=== PATIENT | male | born 1990 | race African-American/Black ===

== ENCOUNTER 2018-03-19 16:16 | Emergency (ER) | payer OTHER ==
[~2018-03-19] VITALS: Ht 172.7 cm; Wt 69.0 kg
[2018-03-19 18:16] LABS: HEMATOCRIT. 37.6 % (42.0-52.0); HEMOGLOBIN. 12.2 g/dL (14.0-18.0); MEAN CORPUSCULAR HEMOGLOBIN 28.1 pg (28.0-32.0); MEAN CORPUSCULAR VOLUME 86.4 fL (80.0-94.0); MEAN PLATELET VOLUME 10.5 fl (7.4-10.4); PLATELET 182 x1000/uL (130-400); RED BLOOD CELL COUNT 4.35 mill/uL (4.7-6.1); RED CELL DISTRIBUTION WIDTH 13.7 % (11.6-14.6)
[2018-03-19 18:18] LABS: CHLORIDE 105 mEq/L (98-107)
[2018-03-19 18:24] LABS: ETHANOL BLOOD < 10 mg/dL
[2018-03-19 18:50] LABS: PLATELET ESTIMATE NORMAL
[2018-03-20 04:32] LABS: CLARITY URINE CLEAR (CLEAR); COLOR URINE DARK YELLOW (YELLOW); KETONES URINE TRACE (NEGATIVE); LEUKOCYTE ESTERASE URINE NEGATIVE (NEGATIVE); NITRITE URINE NEGATIVE (NEGATIVE); OCCULT BLOOD URINE NEGATIVE (NEGATIVE); PH URINE 5.5 (4.5-8.0); PROTEIN URINE NEGATIVE (NEGATIVE); SPECIFIC GRAVITY URINE 1.026 (1.005-1.030)
[2018-03-20 04:41] LABS: *AMPHETAMINES SCREEN URINE NEGATIVE (NEGATIVE); *BARBITURATES SCREEN URINE NEGATIVE (NEGATIVE); *BENZODIAZEPINES SCREEN URINE NEGATIVE (NEGATIVE); *COCAINE SCREEN URINE NEGATIVE (NEGATIVE); METHADONE URINE SCREEN NEGATIVE (NEGATIVE)
[2018-03-20 04:42] LABS: CANNABINOID URINE SCREEN PRESUMTIVE POSITIVE (NEGATIVE); OPIATES URINE SCREEN NEGATIVE (NEGATIVE); PHENCYCLIDINE URINE SCREEN NEGATIVE (NEGATIVE)
[2018-03-20] MEDS: OLANZAPINE 10MG TABLET PO SCH (11:44)
[2018-03-21 10:40] VITALS: BP 108/56
[2018-03-21] MEDS: OLANZAPINE 10MG TABLET PO SCH (11:15)
== END 2018-03-21 12:20 | disposition home or self-care (01) ==
LOC: ER 16:16
DX: R41.82 Altered mental status, unspecified (principal)
CPT/HCPCS: 36415; 70450; 80053; 80307; 80329; 85025; 99285; G0482; Z7610

== ENCOUNTER 2018-03-21 14:14 | Emergency (ER) | payer OTHER ==
[~2018-03-21] VITALS: Ht 167.6 cm; Wt 57.0 kg
[2018-03-21 14:17] VITALS: BP 110/70
== END 2018-03-21 22:42 | disposition left against medical advice (07) ==
LOC: ER 14:31
DX: R44.0 Auditory hallucinations (principal); Z53.21 Procedure and treatment not carried out due to patient leaving prior to being seen by health care provider

== ENCOUNTER 2020-03-07 14:48 | Emergency (ER) | payer OTHER ==
[~2020-03-07] VITALS: Ht 170.2 cm; Wt 60.0 kg
[2020-03-07 17:43] LABS: CLARITY URINE CLEAR (CLEAR); COLOR URINE YELLOW (YELLOW); KETONES URINE TRACE (NEGATIVE); LEUKOCYTE ESTERASE URINE NEGATIVE (NEGATIVE); NITRITE URINE NEGATIVE (NEGATIVE); OCCULT BLOOD URINE NEGATIVE (NEGATIVE); PROTEIN URINE NEGATIVE (NEGATIVE); SPECIFIC GRAVITY URINE 1.026 (1.005-1.030)
[2020-03-07 17:43] LABS: HEMATOCRIT. 43.1 % (42.0-52.0); HEMOGLOBIN. 14.2 g/dL (14.0-18.0); MEAN CORPUSCULAR HEMOGLOBIN 28.5 pg (28.0-32.0); MEAN CORPUSCULAR VOLUME 86.4 fL (80.0-94.0); MEAN PLATELET VOLUME 10.7 fl (7.4-10.4); PLATELET 151 x1000/uL (130-400); RED BLOOD CELL COUNT 4.99 mill/uL (4.7-6.1); RED CELL DISTRIBUTION WIDTH 13.3 % (11.6-14.6)
[2020-03-07 17:53] LABS: CHLORIDE 111 mEq/L (98-107)
[2020-03-07 17:55] LABS: PROTHROMBIN TIME 10.3 sec (9.6-11.0)
[2020-03-07 18:01] LABS: *AMPHETAMINES SCREEN URINE NEGATIVE (NEGATIVE); *BARBITURATES SCREEN URINE NEGATIVE (NEGATIVE); *BENZODIAZEPINES SCREEN URINE NEGATIVE (NEGATIVE)
[2020-03-07 18:02] LABS: *COCAINE SCREEN URINE NEGATIVE (NEGATIVE); CANNABINOID URINE SCREEN PRESUMTIVE POSITIVE (NEGATIVE); METHADONE URINE SCREEN NEGATIVE (NEGATIVE); OPIATES URINE SCREEN NEGATIVE (NEGATIVE); PHENCYCLIDINE URINE SCREEN NEGATIVE (NEGATIVE)
[2020-03-07 18:40] LABS: ATYPICAL LYMPHOCYTES 1
[2020-03-07 18:41] LABS: PLATELET ESTIMATE NORMAL
[2020-03-07] MEDS ORDERED: SODIUM CHLORIDE 0.9% 1,000 ML IV ONE (19:30)
[2020-03-07 20:30] VITALS: BP 113/70
== END 2020-03-07 21:10 | disposition home or self-care (01) ==
LOC: ER 14:48
DX: K52.89 Other specified noninfective gastroenteritis and colitis (principal); E86.0 Dehydration; R11.2 Nausea with vomiting, unspecified; F12.10 Cannabis abuse, uncomplicated; R82.4 Acetonuria; F31.9 Bipolar disorder, unspecified; F20.9 Schizophrenia, unspecified
CPT/HCPCS: 36415; 80053; 80305; 81003; 83690; 85025; 85610; 96360; 99283; J7030

== ENCOUNTER 2021-05-16 22:11 | Emergency (ER) | payer OTHER ==
[~2021-05-16] VITALS: Ht 175.3 cm; Wt 68.0 kg
[2021-05-16 22:24] VITALS: BP 113/77
[2021-05-16] MEDS ORDERED: KETOROLAC 60MG/2ML VIAL IM ONE (23:00)
[2021-05-17] MEDS ORDERED: IBUP-2029 MT (01:57)
== END 2021-05-17 04:40 | disposition home or self-care (01) ==
LOC: ER 22:11
DX: S63.074A Dislocation of distal end of right ulna, initial encounter (principal); F12.10 Cannabis abuse, uncomplicated; F15.10 Other stimulant abuse, uncomplicated; Z86.59 Personal history of other mental and behavioral disorders; Y04.0XXA Assault by unarmed brawl or fight, initial encounter; Y93.89 Activity, other specified; Y92.89 Other specified places as the place of occurrence of the external cause; Y99.8 Other external cause status
CPT/HCPCS: 25605; 73110; 99284

== ENCOUNTER 2021-08-19 15:27 | Emergency (ER) | payer OTHER ==
[~2021-08-19] VITALS: Ht 172.7 cm; Wt 70.0 kg
[~2021-08-19 15:27] MED LIST: IBUP-2029 MT
[2021-08-19 18:00] VITALS: BP 105/73
[2021-08-19] MEDS ORDERED: HYDR30CR80 TP (19:36)
== END 2021-08-19 19:55 | disposition home or self-care (01) ==
LOC: ER 15:27
DX: K64.9 Unspecified hemorrhoids (principal); K60.2 Anal fissure, unspecified; F31.9 Bipolar disorder, unspecified; F20.9 Schizophrenia, unspecified; F12.10 Cannabis abuse, uncomplicated; F15.10 Other stimulant abuse, uncomplicated
CPT/HCPCS: 99283

== ENCOUNTER 2023-04-21 10:58 | Emergency (ER) | payer OTHER ==
[~2023-04-21] VITALS: Ht 182.9 cm; Wt 82.0 kg
[~2023-04-21 10:58] MED LIST changes: +HYDR30CR80 TP
[2023-04-21 11:09] VITALS: BP 146/82; PULSE 90; RESP 16; TEMP 98.3; O2SAT 98
[2023-04-21] MEDS ORDERED: DIPH28.33 TP (11:20)
[2023-04-21] MEDS ORDERED: SULF1TAB48 PO (11:20)
[2023-04-21] MEDS ORDERED: CEPH500C2 PO (11:20)
[2023-04-21] MEDS ORDERED: DIPHENHYDRAMINE 25MG CAPSULE PO ONE (11:30)
== END 2023-04-21 12:07 | disposition home or self-care (01) ==
LOC: ER 10:58
DX: L03.116 Cellulitis of left lower limb (principal); L03.115 Cellulitis of right lower limb; F31.9 Bipolar disorder, unspecified; F20.9 Schizophrenia, unspecified; F12.10 Cannabis abuse, uncomplicated; F15.10 Other stimulant abuse, uncomplicated
CPT/HCPCS: 99283; Q0163

== ENCOUNTER 2023-08-13 17:28 | Emergency (ER) | payer MEDICAID, OTHER ==
[~2023-08-13] VITALS: Ht 175.3 cm; Wt 63.5 kg
[~2023-08-13 17:28] MED LIST changes: +CEPH500C2 PO; +DIPH28.33 TP; +SULF1TAB48 PO
[2023-08-13 17:49] VITALS: BP 143/101; PULSE 90; RESP 16; TEMP 98.2; O2SAT 99
== END 2023-08-13 18:55 | disposition left against medical advice (07) ==
LOC: ER 17:28
DX: F20.9 Schizophrenia, unspecified (principal); F31.9 Bipolar disorder, unspecified; F12.90 Cannabis use, unspecified, uncomplicated; F15.90 Other stimulant use, unspecified, uncomplicated
CPT/HCPCS: 99281

== ENCOUNTER 2024-01-19 03:27 | Emergency (ER) | payer MEDICAID, OTHER ==
[~2024-01-19] VITALS: Ht 175.3 cm; Wt 69.0 kg
[2024-01-19 03:36] VITALS: BP 148/91; PULSE 88; RESP 16; TEMP 98.6; O2SAT 100
[2024-01-19] MEDS ORDERED: ARIP15TA2 MT (07:44)
[2024-01-19] MEDS ORDERED: HYDR-459 MT (07:44)
== END 2024-01-19 05:44 | disposition left against medical advice (07) ==
LOC: ER 03:27
DX: R51.9 Headache, unspecified (principal); Z53.21 Procedure and treatment not carried out due to patient leaving prior to being seen by health care provider
CPT/HCPCS: Z7610 ×2

== ENCOUNTER 2024-01-19 06:19 | Emergency (ER) | payer MEDICAID ==
[~2024-01-19] VITALS: Ht 177.8 cm; Wt 73.0 kg
[2024-01-19 06:39] VITALS: BP 123/94; TEMP 98.4; O2SAT 99
[2024-01-19 06:40] VITALS: PULSE 86; RESP 20
[2024-01-19] MEDS ORDERED: ARIP15TA2 MT (07:44)
[2024-01-19] MEDS ORDERED: HYDR-459 MT (07:44)
== END 2024-01-19 08:29 | disposition home or self-care (01) ==
LOC: ER 06:19
DX: F41.9 Anxiety disorder, unspecified (principal); F12.10 Cannabis abuse, uncomplicated; F15.10 Other stimulant abuse, uncomplicated; Z76.0 Encounter for issue of repeat prescription
CPT/HCPCS: 99281; Z7610